=== PATIENT | male | born 1965 | race Caucasian/White ===

== ENCOUNTER 2021-02-20 07:30 | Day surgery (SDC) | payer BC ==
[2021-02-19 10:22] VITALS: BMI 34.0
[2021-02-20] MEDS ORDERED: LIDOCAINE HCL/PF 2% SDV 5ML VIAL ONE (07:59)
[2021-02-20] MEDS ORDERED: PROPOFOL 20 ML ONE ×4 (08:00)
[2021-02-20 09:04] VITALS: TEMP 98.1
[2021-02-20 09:26] VITALS: BP 121/71; PULSE 61
== END 2021-02-20 09:35 | disposition home or self-care (01) ==
LOC: FASU-ENDO 07:30
PROVIDERS: ATTEND Internal Medicine Gastroenterology
PROC: 0DBC8ZX Excision of Ileocecal Valve, Via Natural or Artificial Opening Endoscopic, Diagnostic (ICD-10-PCS; principal; 2021-02-20 08:26)
DX: Z12.11 Encounter for screening for malignant neoplasm of colon (principal); Z83.71 Family history of colonic polyps
CPT/HCPCS: 88305-TC